=== PATIENT | male | born 1970 | race Two or more races ===

== ENCOUNTER 2025-09-16 07:47 | Emergency (ER) | payer OTHER, SELFPAY ==
[2025-09-16 07:48] VITALS: BP 126/77; PULSE 69; RESP 18; TEMP 36.8; O2SAT 100; BMI 25.2
[2025-09-16 08:12] VITALS: PULSE 85; RESP 18; O2SAT 99
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
== END 2025-09-16 12:00 | disposition home or self-care (01) ==
PROVIDERS: Emergency Provider Nurse Practitioner Family; PCP Physician Assistant
DX: S82.041A Displaced comminuted fracture of right patella, initial encounter for closed fracture (principal); E78.5 Hyperlipidemia, unspecified; V89.2XXA Person injured in unspecified motor-vehicle accident, traffic, initial encounter; Y92.410 Unspecified street and highway as the place of occurrence of the external cause
CPT/HCPCS: 29505; 70450; 72125; 73562; 99283

== ENCOUNTER → 2025-09-29 | Outpatient (CLI) | payer OTHER, SELFPAY ==
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
== END | disposition home or self-care (01) ==
LOC: CDIM 11:48
PROVIDERS: PCP Physician Assistant; Referring Provider Physician Assistant; Visit Provider Physician Assistant
DX: S62.632A Displaced fracture of distal phalanx of right middle finger, initial encounter for closed fracture (principal); S62.612A Displaced fracture of proximal phalanx of right middle finger, initial encounter for closed fracture; V89.2XXA Person injured in unspecified motor-vehicle accident, traffic, initial encounter
CPT/HCPCS: 73140

== ENCOUNTER 2025-10-01 14:42 | Outpatient (AMB) | payer OTHER, SELFPAY ==
[2025-10-01 14:55] VITALS: BP 134/80; PULSE 86; RESP 18; TEMP 36.9; O2SAT 95; BMI 55.3
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
== END 2025-10-01 15:15 | disposition home or self-care (01) ==
LOC: HODSRG 14:42
PROVIDERS: PCP Physician Assistant; Referring Provider Physician Assistant; Supervising Provider Orthopaedic Surgery Adult Reconstructive Orthopaedic Surgery; Visit Provider Orthopaedic Surgery Adult Reconstructive Orthopaedic Surgery
DX: M25.561 Pain in right knee (principal); S82.001A Unspecified fracture of right patella, initial encounter for closed fracture; V89.2XXA Person injured in unspecified motor-vehicle accident, traffic, initial encounter
CPT/HCPCS: 99203; G0463

== ENCOUNTER → 2025-10-02 | Outpatient (CLI) | payer OTHER, SELFPAY ==
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
== END | disposition home or self-care (01) ==
PROVIDERS: PCP Physician Assistant; Referring Provider Orthopaedic Surgery Adult Reconstructive Orthopaedic Surgery; Visit Provider Orthopaedic Surgery Adult Reconstructive Orthopaedic Surgery
DX: S82.041A Displaced comminuted fracture of right patella, initial encounter for closed fracture (principal); V89.2XXA Person injured in unspecified motor-vehicle accident, traffic, initial encounter
CPT/HCPCS: 73700

== ENCOUNTER 2025-10-03 10:50 | Day surgery (SDC) | payer OTHER, SELFPAY ==
[2025-10-02 09:24] VITALS: BMI 25.4
[2025-10-02 10:13] LABS: Basophils # (Auto) 0.0 Thou/mm3 (0.0-0.2); Basophils % (Auto) 0 % (0-2.5); Eosinophils # (Auto) 0.1 Thou/mm3 (0.0-0.5); Eosinophils % (Auto) 1 % (0-10); Hematocrit 37.8 % (41.0-53.0); Hemoglobin 12.8 g/dL (13.5-16.0); Immature Granulocytes Auto 0.02 Thou/mm3 (0.00-0.00); Lymphocytes # (Auto) 1.3 Thou/mm3 (1.0-4.8); Lymphocytes % (Auto) 23 % (10-50); Mean Corpuscular HGB Conc 33.9 g/dl (31.0-37.0); Mean Corpuscular Hemoglobin 30.2 pg (25.0-35.0); Mean Corpuscular Volume 89 fL (80-100); Monocytes # (Auto) 0.3 Thou/mm3 (0.0-0.8); Monocytes % (Auto) 5 % (0-12); Neutrophils # (Auto) 4.2 Thou/mm3 (1.8-7.7); Neutrophils % (Auto) 71 % (37-80); Nucleated Red Blood Cell # 0.00 Thou/mm3 (0.00-0.00); Nucleated Red Blood Cell % 0 /100 WBC (0); Platelet Count 301 Thou/mm3 (140-440); RDW Standard Deviation 42.5 fL (35.1-43.9); Red Blood Count 4.24 Miln/mm3 (4.50-5.90); White Blood Count 5.8 Thou/mm3 (3.8-10.6)
[2025-10-02 10:17] LABS: INR 1.0 (0.9-1.3); Partial Thromboplastin Time 28.4 Seconds (22.0-36.0); Prothrombin Time 11.1 Seconds (9.0-12.2)
[2025-10-02 11:39] LABS: Anion Gap 10 (7-16); BUN/Creatinine Ratio 15 Ratio (12-20); Blood Urea Nitrogen 12 mg/dL (9-23); Calcium 9.1 mg/dL (8.3-10.6); Carbon Dioxide 29.1 mMol/L (20.0-31.0); Chloride 105 mMol/L (98-107); Creatinine (Component) 0.8 mg/dL (0.6-1.3); Estimated Creatinine Clearance 98.7 mL/min (>60); Glucose 98 mg/dL (74-106); Osmolality,Calculated 286 (275-295); Potassium 4.3 mMol/L (3.4-5.1); Sodium 144 mMol/L (136-145); eGFR > 60 See Note
[2025-10-03] VITALS (10 sets, daily range): BP systolic 116–132; BP diastolic 76–86; PULSE 61–76; RESP 14–30; TEMP 36.3–37.2; O2SAT 97–100; BMI 25.0
[2025-10-03] MEDS: MELOXICAM 7.5 MG TABLET PO (11:11)
[2025-10-03] MEDS: RINGERS LACTATED 1000 ML 1,000 ML 20 ML IV (11:12)
[2025-10-03] MEDS: ACETAMINOPHEN 325 MG TABLET 650 MG PO (11:12)
[2025-10-03] MEDS: PREGABALIN 75 MG CAPSULE PO (11:12)
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
--- NOTE | 2025-10-03 17:08 | XR_ITS ---
EXAMINATION: Right knee 2 views TECHNIQUE: AP lateral right knee 2 views INDICATIONS: Acute comminuted fractures patella with 19 mm separation of the main fracture fragments on the CT study October 02, 2025, postreduction films FINDINGS: The patient's orthopedic stabilization equipment overlies the patella on the lateral view The patellar alignment appears markedly improved compared to the October 02, 2025 exam IMPRESSION: Limited study as above
[2025-10-03] MEDS: HYDROmorphone INJ 2 MG/ML VIAL 0.4 MG IVP (17:47)
[2025-10-03] MEDS: ACETAMINOPHEN IVPB 1,000 MG/100 ML VIAL 250 MG IV (17:49)
--- NOTE | 2025-10-03 17:49 | SUR.PHASEI ---
1716 patient arrived to recovery room with oral airway in place, breathing unlabored, dressing to right knee dry with no bleeding, knee brace in place. Toes to right foot has good circulation, pedal pulse present and strong. Report received from Irasema CHAVEZ and Dr. Man. 1721 oral airway removed, breathing unlabored 1730 post op xray completed and seen by Dr. Wallis. 1749 patient more awake and having pain, ofirmev and dilaudid given for pain management.
--- NOTE | 2025-10-03 19:15 | SUR.PHASEII ---
1853 patient is awake, alert, breathing unlabored, dressing to right knee dry with no bleeding, right pedal pulses strong, toes with good circulation. patient has brace to right hand which he came in with this morning before surgery. Patient speaks greenlandic, speaks ecuadorean, patient request greenlandic and ecuadorean discharge instructions copy. discharge instructions given via discharge planner Rachel STANFORD. Patient drank water with no nausea or vomiting. Patient ambulated with crutches around [facility] and know how to use crutches weight bearing since he was using crutches prior to surgery. patient discharged home in wheelchair with all belongings including crutches and knee brace he brought from home.
== END 2025-10-03 18:53 | disposition home or self-care (01) ==
PROVIDERS: PCP Physician Assistant; Referring Provider Orthopaedic Surgery Adult Reconstructive Orthopaedic Surgery; Visit Provider Orthopaedic Surgery Adult Reconstructive Orthopaedic Surgery
PROC: (CPT 27524; principal; 2025-10-03 15:15)
DX: S82.041A Displaced comminuted fracture of right patella, initial encounter for closed fracture (principal); V49.9XXA Car occupant (driver) (passenger) injured in unspecified traffic accident, initial encounter
CPT/HCPCS: 27524; 36415; 73560; 80048; 85025; 85610; 85730; A4217; A4649; J0131; J1171; J2250; J2704; J3010; J3490; J7120; A9270; J7999

== ENCOUNTER 2025-10-23 13:59 | Outpatient (AMB) | payer BC, SELFPAY ==
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
[2025-10-23 14:12] VITALS: BP 126/81; PULSE 74; RESP 18; TEMP 36.6; O2SAT 97; BMI 24.5
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
== END 2025-10-23 14:28 | disposition home or self-care (01) ==
LOC: HODSRG 13:59
PROVIDERS: PCP Physician Assistant; Referring Provider Physician Assistant; Supervising Provider Orthopaedic Surgery Adult Reconstructive Orthopaedic Surgery; Visit Provider Orthopaedic Surgery Adult Reconstructive Orthopaedic Surgery
DX: S82.001D Unspecified fracture of right patella, subsequent encounter for closed fracture with routine healing (principal); S62.616D Displaced fracture of proximal phalanx of right little finger, subsequent encounter for fracture with routine healing; V89.2XXD Person injured in unspecified motor-vehicle accident, traffic, subsequent encounter; M25.561 Pain in right knee
CPT/HCPCS: 73120; 73564; 99213; G0463

== ENCOUNTER 2025-11-06 14:37 | Outpatient (AMB) | payer BC, SELFPAY ==
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
[2025-11-06 14:51] VITALS: BP 116/77; PULSE 76; RESP 20; TEMP 36.4; O2SAT 96; BMI 24.3
== END 2025-11-06 15:09 | disposition home or self-care (01) ==
PROVIDERS: PCP Physician Assistant; Referring Provider Physician Assistant; Supervising Provider Orthopaedic Surgery Adult Reconstructive Orthopaedic Surgery; Visit Provider Orthopaedic Surgery Adult Reconstructive Orthopaedic Surgery
DX: S82.091A Other fracture of right patella, initial encounter for closed fracture (principal); V89.2XXA Person injured in unspecified motor-vehicle accident, traffic, initial encounter; Y92.410 Unspecified street and highway as the place of occurrence of the external cause; S62.91XA Unspecified fracture of right hand, initial encounter for closed fracture
CPT/HCPCS: 99213; G0463